=== PATIENT | female | born 1965 | race Caucasian/White ===

== ENCOUNTER 2017-11-15 01:10 | Emergency (ER) | payer BC, OTHER ==
[~2017-11-15] VITALS: Ht 162.6 cm; Wt 59.0 kg
[~2017-11-15 01:10] MED LIST: LISD60 PO
[2017-11-15 01:20] VITALS: BP 103/59; PULSE 60; RESP 18; TEMP 98.2; O2SAT 98
[2017-11-15] MEDS ORDERED: ACETAMINOPHEN/CODEINE 300 MG/30 MG TAB PO ONE (01:30)
[2017-11-15] MEDS ORDERED: AMOXICILLIN/CLAVULANATE K 875 MG TAB PO ONE (01:30)
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
[2017-11-15] MEDS ORDERED: IBUP1TAB7 PO (02:23)
[2017-11-15] MEDS ORDERED: AUGM875T3 PO (02:23)
== END 2017-11-15 03:02 ==
LOC: NEPD 01:10
DX: S00.03XA Contusion of scalp, initial encounter (principal); F17.200 Nicotine dependence, unspecified, uncomplicated; Y04.1XXA Assault by human bite, initial encounter
CPT/HCPCS: 70450; 72125